=== PATIENT | male | born 1980 | race Caucasian/White ===

== ENCOUNTER 2017-01-25 19:12 | Emergency (ER) | payer MEDICAID ==
[~2017-01-25 19:12] MED LIST: ADVIL200 MG PO; AMOXIL500 MG PO; APAP/HYDROCODON1 T13 PO; COLACE100 MG PO; LOVASTATIN40 MG PO
[2017-01-25 20:37] LABS: BASOPHIL % 0.4 % (0-2); PLATELET COUNT 190 x10^3mcL (130-400); RED CELL DISTRIBUTION WIDTH 13.1 % (11.5-14.5)
[2017-01-25 20:56] LABS: CALCIUM 8.6 mg/dL (8.5-10.1); CARBON DIOXIDE 27.4 mmol/L (21-32); CHLORIDE SERUM 104 mmol/L (98-107); CREATININE SERUM 1.1 mg/dL (0.7-1.3); GFR1 > 60 mL/min; GLUCOSE SERUM 104 mg/dL (74-106); POTASSIUM SERUM 3.9 mmol/L (3.5-5.1); SODIUM SERUM 139 mmol/L (136-145)
[2017-01-25 20:57] LABS: microscopic required? YES; urine erythrocyte TRACE (NEGATIVE)
[2017-01-25 21:00] LABS: ALBUMIN 3.7 g/dL (3.4-5.0); ALKALINE PHOSPHATASE 65 U/L (46-116); ALT/SGPT 40 U/L (16-63); AMYLASE 52 U/L (25-115); AST/SGOT 11 U/L (15-37); BILIRUBIN TOTAL 0.3 mg/dL (0.20-1.00); LIPASE 181 IU/L (73-393); TOTAL PROTEIN, SERUM 6.9 g/dL (6.4-8.2)
[2017-01-25 21:07] LABS: AMPHETAMINE QUAL UR NONE DETECTED (NEG <=1000)
[2017-01-25 21:26] LABS: CK-MB 0.7 ng/mL (0-3.6)
[2017-01-26 00:11] VITALS: BP 140/91
== END 2017-01-26 00:11 | disposition home or self-care (01) ==
LOC: ED 19:12
PROVIDERS: Emergency Medicine
DX: R07.9 Chest pain, unspecified (principal)
CPT/HCPCS: 80307

== ENCOUNTER 2017-10-28 12:41 | Emergency (ER) | payer MEDICAID ==
[~2017-10-28] VITALS: Ht 172.7 cm; Wt 95.2 kg
[2017-10-28 12:59] VITALS: BP 130/74; Ht 172.7 cm; Wt 95.2 kg
== END 2017-10-28 13:55 | disposition home or self-care (01) ==
LOC: ED 12:41
DX: M54.5 Low back pain (principal)
CPT/HCPCS: J1885

== ENCOUNTER 2018-04-27 16:23 | Emergency (ER) | payer MEDICAID ==
[~2018-04-27] VITALS: Ht 172.7 cm; Wt 94.3 kg
[2018-04-27 16:27] VITALS: BP 132/89; Ht 172.7 cm; Wt 94.3 kg
== END 2018-04-27 17:11 | disposition home or self-care (01) ==
LOC: ED 16:23
DX: S61.532A Puncture wound without foreign body of left wrist, initial encounter (principal); W26.8XXA Contact with other sharp object(s), not elsewhere classified, initial encounter; Y93.89 Activity, other specified; Y92.89 Other specified places as the place of occurrence of the external cause; Y99.8 Other external cause status
CPT/HCPCS: 90715; A4570; Q0092

== ENCOUNTER 2019-08-26 17:09 | Inpatient (IN) | payer MEDICAID ==
[~2019-08-26] VITALS: Ht 175.3 cm; Wt 93.9 kg
[2019-08-26 17:35] VITALS: Ht 175.3 cm; Wt 93.9 kg
[2019-08-26 18:25] LABS: BASOPHIL % 0.3 % (0-2); PLATELET COUNT 231 x10^3mcL (130-400); RED CELL DISTRIBUTION WIDTH 12.6 % (11.5-14.5)
--- NOTE | 2019-08-26 18:33 | NUR ---
AGENCY DOCUMENTATION DONE BY Staff Name/Title - : ADEEL LUU JR/TONJA [employer] User ID - : [id number] Agency Name - : [employer] Time Documented - From - : [phone] To - : 1929
--- NOTE | 2019-08-26 18:34 | NUR ---
ASSUMED PATIENT CARE, NURSING ASSESSMENT COMPLETED, SEEN AND EVALUATED BY DUARTE VALENCIA COMPLETED.
[2019-08-26 18:45] LABS: CALCIUM 8.1 mg/dL (8.5-10.1); CARBON DIOXIDE 27.3 mmol/L (21-32); CREATININE SERUM 1.4 mg/dL (0.7-1.3)
--- NOTE | 2019-08-26 18:46 | NUR ---
ASSISTED WITH DR POWER WITH TELE NEUROLOGY.
[2019-08-26 18:49] LABS: ALBUMIN 3.9 g/dL (3.4-5.0); BILIRUBIN TOTAL 0.47 mg/dL (0.20-1.00); TOTAL PROTEIN, SERUM 7.5 g/dL (6.4-8.2)
[2019-08-26 18:59] LABS: POTASSIUM SERUM 3.8 mmol/L (3.5-5.1)
--- NOTE | 2019-08-26 19:03 | NUR ---
PT IS AWAKE, SITTING UP IN GURNEY, SPEAKING IN FULL CLEAR SENTENCES, MOVING ALL EXTREMITIES APPROPRIATELY, NO FACIAL DROOP NOTED. PT MEDICATED PER MD ORDER. PT VERBALIZED UNDERSTANDING OF MEDICATION PRIOR TO ADMINISTRATION.
[2019-08-26 19:40] LABS: CHOLESTEROL 215 mg/dL (<200); CHOLESTEROL/HDL RATIO 8.6; HDL CHOLESTEROL 25 mg/dL (40-60); TRIGLYCERIDES 786 mg/dL (<150)
[2019-08-26 19:45] LABS: microscopic required? NO
--- NOTE | 2019-08-26 19:50 | NUR ---
PT REPORTING PAIN 5/10 TO LEFT SIDE OF FACE, -FACIAL DROOP, SPEAKING IN FULL CLEAR SENTENCES, MOVING ALL EXTREMITIES APPROPRIATELY, AT BEDSIDE, CALL LIGHT IN REACH.
[2019-08-26 19:55] LABS: UA SPECIFIC GRAVITY 1.015 (1.005-1.035); urine erythrocyte NEGATIVE (NEGATIVE)
--- NOTE | 2019-08-26 20:34 | NUR ---
REPORT CALLED TO TONJA HADDAD TO ASSUME CARE FOR PT.
--- NOTE | 2019-08-26 20:35 | NUR ---
RECEIVED PT VIA [facility] FROM E/D, ACCOMPANIED BY MYSELF AND THE E/D PRIMARY NURSE, ALONG W/ , ALEJO LEONARD. PT A/A/O X 4, CALM, COOPERATIVE; NO L-SIDED FACIAL TWITCHING NOTED, C/O INTERMITTENT PRESSURE TO SITE 5/10, EXACERBATED BY FACIAL MOVEMENT AND RELIEVED BY RESTING AND PAIN MEDICATION. AMBULATORY, NO GAIT OR BALANCE IMPAIRMENT NOTED WHEN WALKING FROM GURNEY TO BED. ON TELE # 9, NSR, HR 77, DENIES CHEST PAIN OR DISCOMFORT AT THIS TIME. SCD BY BEDSIDE. NO ACUTE RESPIRATORY DISTRESS NOTED. IV SITE RAC 18G, CDI. ORIENTED PT AND TO ROOM, BED CONTROLS, CALL LIGHT SYSTEM. SIDE RAILS UP X 2, BED IN LOW POSITION. WILL ENDORSE TO TONJA BARAJAS.
--- NOTE | 2019-08-26 20:45 | NUR ---
REPORT RECEIVED FROM TONJA CRUZ. PATIENT WAS SEEN RESTING COMFORTABLY IN BED WITH AT BEDSIDE. NO DISTRESS NOTED. BREATHING EVEN AND UNLABORED ON ROOM AIR. NO SOB OR RESP DISTRESS NOTED. A/OX4. ABLE TO MAKE NEEDS KNOWN. WITH CLEAR AND APPROPIATE SPEECH. NO EVIDENCE FACIAL DROOP OR SLURR. NO FACIAL TWITCHING NOTED AT THIS TIME. PATIENT REPORTS TWITCH IS INTERMITTENT. DENIES CHEST PAIN/PRESSURE. ABLE TO MOVE ALL EXTREMITIES. IV TO THE RAC. SALINE LOCK. PATENT AND INTACT. NO REDNESS OR SWELLING NOTED. COMFORT AND SAFETY MEASURES IN PLACE. BED IS LOCKED AND IN THE LOWEST POSITION. SIDE RAILS UP X2. CALL LIGHT WITHIN REACH. WILL CONTINUE TO MONITOR.
[2019-08-26 20:55] LABS: FREE T4 0.97 ng/dL (0.76-1.46); FREE THYROXINE INDEX 2.6 ug/dL (1.4-4.5); T4(THYROXINE) 7.4 ug/dL (4.7-13.3)
[2019-08-26 20:56] LABS: T3 TOTAL 1.19 ng/mL
[2019-08-26 21:36] LABS: AMPHETAMINE QUAL UR NONE DETECTED (See below)
[2019-08-26 22:30] VITALS: BP 129/81
--- NOTE | 2019-08-27 00:10 | NUR ---
RESTING IN BED. A/OX4. REPORTS FACIAL TWITCHING STOPPED. NO SLURRED SPEECH OR FACIAL DROOP NOTED. CLEAR AND APPROPIATE SPEECH. AT BEDSIDE. DENIES PAIN. NO DISTRESS NOTED. SAFETY MEASURES IN PLACE. CALL LIGHT IS WITHIN REACH. WILL CONTINUE TO MONITOR.
--- NOTE | 2019-08-27 02:19 | NUR ---
RESTING IN BED W/ EYES CLOSED. NO DISTRESS NOTED. BREATHING EVEN AND UNLABORED ON ROOM AIR. NO S/S OF PAIN NOTED. NO FACIAL TWITCH NOTED. AT BEDSIDE. SAFETY MEASURES IN PLACE. CALL LIGHT IS WITHIN REACH. WILL CONTINUE TO MONITOR.
--- NOTE | 2019-08-27 04:18 | NUR ---
RESTING IN BED WITH EYES CLOSED. NO DISTRESS NOTED. NO FACIAL DROOP NOTED. AT BEDSIDE. BREATHING EVEN. SAFETY MEASURES IN PLACE. CALL LIGHT IS WITHIN REACH. WILL CONTINUE TO MONITOR.
[2019-08-27 04:50] VITALS: BP 106/69
--- NOTE | 2019-08-27 07:30 | NUR ---
RECEIVED PT IN BED. ASSESSED AND DOCUMENTED. PT SAID HE DOESNOT HAVE TWITCHING FEELING OR NUMBNESS ANYMORE BUT STILL HAS SOME TENDERNESS AND SWELLING TO LEFT SIDE OF FACE. OFFERED MEDICINE FOR PAIN HE SAID HE DOESNOT NEED ANYTHING FOR PAIN. SAFTEY PRECAUTIONS ARE IN PLACE. WILL MONITOR. AT BEDSIDE.
[2019-08-27 07:35] LABS: BASOPHIL % 0.5 % (0-2); PLATELET COUNT 186 x10^3mcL (130-400); RED CELL DISTRIBUTION WIDTH 12.6 % (11.5-14.5)
[2019-08-27 07:45] LABS: CALCIUM 8.6 mg/dL (8.5-10.1); CHLORIDE SERUM 104 mmol/L (98-107); CREATININE SERUM 1.2 mg/dL (0.7-1.3); GFR1 > 60 mL/min; GLUCOSE SERUM 106 mg/dL (74-106); PHOSPHOROUS 3.7 mg/dL (2.5-4.9); POTASSIUM SERUM 3.9 mmol/L (3.5-5.1); SODIUM SERUM 139 mmol/L (136-145)
[2019-08-27 08:54] VITALS: BP 123/82
[2019-08-27] MEDS ORDERED: FENOFIBRATE MI134 MG PO (10:23)
[2019-08-27] MEDS ORDERED: ASPIRIN ADULT L81 M5 PO (10:25)
--- NOTE | 2019-08-27 11:00 | NUR ---
PUT DC ORDERS, ASKED HIM ABOUT ECHO WITH BUBBLE STUDY ORDER, HE SAID HE WILL DC THE ORDER. ALSO INFORMED HIM ABOUT PT STILL HAS LEFT SIDE FACIAL TENDERNESS AND SWELLING. HE SAID HE IS AWARE AND HE RECCOMEND PT AMBULATE IN THE HALLWAY AND IF HE IS FEELING FINE HE IS STABLE TO GO HOME. CHARGE NURSE AWARE. INSTRUCTED PT TO AMBULATE IN THE HALLWAY.
--- NOTE | 2019-08-27 12:00 | NUR ---
PT AMBULATED IN THE HALLWAY WELL, NO DISTRESS NOTED.
[2019-08-27 12:15] VITALS: BP 116/76
[2019-08-27 13:44] VITALS: BP 116/76
--- NOTE | 2019-08-27 14:00 | NUR ---
DISCHARGE INSTRUCTIONS GIVEN. PB SIGNED AND SENT WITH PT. PRESCRIPTION SENT TO PT'S PHARMACY BY . DENIES ANY PAIN. NO DISTRESS NOTED. WAITING FOR PT RIDE.
--- NOTE | 2019-08-27 15:10 | NUR ---
PT'S CAME TO WOOLING MACHINE OPERATOR PT. REVENUE STAMP CUTTER WHEELED PT DOWN TO LOBBY ACCOMPANIED PT'S . IV WAS REMOVED AND DRESSING APPLIED. TELE REMOVED AND RETURNED. PT WAS STABLE, DENIES ANY PAIN.
== END 2019-08-27 15:35 | disposition home or self-care (01) | DRG 47 ==
LOC: ED 17:09 → DU 19:55
PROVIDERS: Emergency Medicine; ADMIT Internal Medicine
DX: G45.9 Transient cerebral ischemic attack, unspecified (principal); N17.0 Acute kidney failure with tubular necrosis; E83.51 Hypocalcemia; R25.3 Fasciculation; R51 Headache; R20.0 Anesthesia of skin; E78.5 Hyperlipidemia, unspecified; Z68.30 Body mass index [BMI] 30.0-30.9, adult
CPT/HCPCS: 84439; G0378; Q0092

== ENCOUNTER 2019-12-07 18:21 | Emergency (ER) | payer MEDICAID ==
[~2019-12-07] VITALS: Ht 167.6 cm; Wt 94.3 kg
[~2019-12-07 18:21] MED LIST changes: +ASPIRIN ADULT L81 M5 PO; +FENOFIBRATE MI134 MG PO
[2019-12-07 18:26] VITALS: Ht 167.6 cm; Wt 94.3 kg
[2019-12-07 18:57] LABS: BASOPHIL % 0.3 % (0-2); PLATELET COUNT 236 x10^3mcL (130-400); RED CELL DISTRIBUTION WIDTH 12.5 % (11.5-14.5)
[2019-12-07 19:04] LABS: ALBUMIN 4.4 g/dL (3.4-5.0); ALKALINE PHOSPHATASE 62 U/L (46-116); ALT/SGPT 64 U/L (16-63); AST/SGOT 30 U/L (15-37); BILIRUBIN TOTAL 0.7 mg/dL (0.20-1.00); CARBON DIOXIDE 29.9 mmol/L (21-32); CHLORIDE SERUM 101 mmol/L (98-107); CREATININE SERUM 1.1 mg/dL (0.7-1.3); GFR1 > 60 mL/min; GLUCOSE SERUM 94 mg/dL (74-106); LIPASE 138 IU/L (73-393); POTASSIUM SERUM 3.9 mmol/L (3.5-5.1); SODIUM SERUM 140 mmol/L (136-145); TOTAL PROTEIN, SERUM 8.1 g/dL (6.4-8.2)
[2019-12-07 20:52] VITALS: BP 155/76
== END 2019-12-07 20:52 | disposition home or self-care (01) ==
LOC: ED 18:21
PROVIDERS: Emergency Medicine
DX: R10.814 Left lower quadrant abdominal tenderness (principal); R68.83 Chills (without fever); R11.0 Nausea; R30.0 Dysuria; Z90.89 Acquired absence of other organs
CPT/HCPCS: J1885; J2405